=== PATIENT | female | born 2000 | race African-American/Black ===

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

== ENCOUNTER 2018-06-29 07:42 | Inpatient (IN) | payer OTHER ==
[2018-06-29] MEDS ORDERED: BUTORPHANOL 2 MG/ML INJ (J0595) As Ordered (08:22)
[2018-06-29 08:39] LABS: BASO % 0.3 % (0.0-1.0); EOS # 0.2 10^3/uL (0.0-0.50); EOS % 1.7 % (0.0-3.0); HEMATOCRIT 35.1 % (36.0-47.0); HEMOGLOBIN 11.4 g/dl (12.0-15.5); IMMATURE GRANULOCYTE % 0.5 % (0-3.0); LYMPH # 3.3 10^3/uL (1.5-6.5); MEAN CORPUSCULAR HEMOGLOBIN 29.2 pg (27.0-33.0); MEAN CORPUSCULAR HGB CONC 32.5 g/dl (32.0-36.5); MONO # 0.7 10^3/uL (0.0-0.8); MONO % 8.1 % (0.0-5.0); NEUTROPHILS # 4.6 10^3/uL (1.8-7.7); NEUTROPHILS % 52.4 % (36.0-66.0); PLATELET COUNT, AUTOMATED 147 10^3/uL (150-450); RED CELL DISTRIBUTION WIDTH 13.2 % (11.5-14.5); WHITE BLOOD COUNT 8.8 10^3/uL (4.0-10.0)
[2018-06-29] MEDS ORDERED: FENTANYL 2MCG/ML ROPIVACAINE 0.2% IN 0.9% NACL 200ML IVBAG As Ordered (08:47)
[2018-06-29] MEDS: BUTORPHANOL 2 MG/ML INJ (J0595) IV (09:00)
[2018-06-29] MEDS: LR 1,000 ML IV (09:36)
[2018-06-29] MEDS: LACTATED RINGER'S 1000 ML IV (09:36)
[2018-06-29] MEDS ORDERED: diphenhydrAMINE INJ 50MG/ML VIAL (J1200) IV (10:00)
[2018-06-29] MEDS ORDERED: ONDANSETRON 4MG/2ML VIAL (J2405) IV (10:00)
[2018-06-29] MEDS ORDERED: EPIDURAL COMMENT XX (10:00)
[2018-06-29] MEDS ORDERED: NALOXONE INJ 0.4 MG/1 ML VIAL (J2310) IV (10:00)
[2018-06-29] MEDS ORDERED: EPIDURAL/PCA KEYS XX (10:00)
[2018-06-29] MEDS ORDERED: REFRIGERATOR IV KEYS XX (10:00)
[2018-06-29] MEDS: FENTANYL/ROPIVACAINE/NACL BAG 200 ML EPIDURAL (10:31)
[2018-06-29] MEDS ORDERED: OXYTOCIN 30 UNITS IN 0.9% NaCl 500ML IV BAG (J2590) As Ordered (11:52)
[2018-06-29] MEDS: OXYTOCIN DRIP 30 UNITS in APPROPRIATE DILUENT 1 EA IV (13:28)
[2018-06-29] MEDS ORDERED: METOCLOPRAMIDE INJ 10MG/2ML VIAL (J2765) IV (13:30)
[2018-06-29] MEDS ORDERED: RHOGAM 300 MCG (1500 IU) INJ (J2790) IM (13:30)
[2018-06-29] MEDS ORDERED: MEASLES,MUMPS,RUBELLA VACCINE INJ (MMR-II) (90707) SC (13:30)
[2018-06-29] MEDS ORDERED: DIBUCAINE 1% OINTMENT 30GM TOP (13:30)
[2018-06-29] MEDS: IBUPROFEN 800 MG TAB PO (15:25)
[2018-06-29] MEDS: ACETAMINOPHEN TAB 650MG DOSE (2X325MG) PO ×2 (18:33→21:36)
[2018-06-29] MEDS: DOCUSATE SODIUM 100 MG CAP PO (20:21)
[2018-06-30] MEDS: PRENATAL VITAMINS CHEWABLE TABLET PO (07:15)
[2018-06-30] MEDS: DOCUSATE SODIUM 100 MG CAP PO ×2 (07:16→20:48)
[2018-06-30] MEDS: IBUPROFEN 800 MG TAB PO ×2 (07:16→18:51)
[2018-06-30] MEDS: ACETAMINOPHEN TAB 650MG DOSE (2X325MG) PO (20:48)
[2018-07-01] MEDS: IBUPROFEN 800 MG TAB PO (06:27)
[2018-07-01] MEDS: PRENATAL VITAMINS CHEWABLE TABLET PO (08:26)
[2018-07-01] MEDS: DOCUSATE SODIUM 100 MG CAP PO (08:26)
[2018-07-01] MEDS: INFLUENZA QUADRIVALENT PF VACCINE 0.5ML SYRINGE (90686) IM (12:19)
== END 2018-07-01 13:40 | disposition home or self-care (01) | DRG 775 ==
LOC: M LDO 07:42 → M LDI 07:55 → M OBS 14:04
PROVIDERS: Obstetrics & Gynecology
PROC: 10E0XZZ Delivery of Products of Conception, External Approach (ICD-10-PCS; principal; 2018-06-29)
PROC: 0HQ9XZZ Repair Perineum Skin, External Approach (ICD-10-PCS; 2018-06-29)
DX: O70.0 First degree perineal laceration during delivery (principal); Z37.0 Single live birth; Z3A.39 39 weeks gestation of pregnancy

== ENCOUNTER → 2019-01-13 | Outpatient (CLI) | payer OTHER ==
[~2019-01-13] MED LIST: COLA100C5 PO; IBUP-1114 PO; MAPA500T2 PO; PRENTAB56; REGL10TA6 PO; VITA100T14 PO; prenatal PO
--- NOTE | 2019-01-13 20:07 | REP ---
First trimester obstetric ultrasound for dating and viability: The studies performed with transabdominal, vaginal and Doppler ultrasound assessment. Gestational age by LMP is 7 weeks 1 day. There is an intrauterine gestational sac without a pole or yolk sac. The mean gestational sac diameter is 7.26 mm corresponding to 5 weeks 3 days gestational age. Right ovary: The right ovary is normal size measuring 3.4-0.1 x 2.5 cm. There is a complex hemorrhagic cyst measuring 2.5 x 1.8 x 2.2 cm. There is vascular flow with the Doppler resistive index of the parenchymal arteries measuring 0.37. Left ovary: Left ovary is normal size measuring 2.6 x 1.3 x 1.3 cm. There is no dominant mass or cyst. There is vascular flow with the Doppler resistive index of the parenchymal arteries measuring 0.62. There is a trace of free fluid in the cul-de-sac. Impression: There is an intrauterine gestational sac without pole or yolk sac. Mean gestational sac diameter corresponds to 5 weeks 3 days gestational age. Gestational age by LMP is 7 weeks 1 day. Electronically Signed by Joseph Brenner MD 01/13/2019 07:58 P
== END ==
LOC: M RAD 18:16
PROVIDERS: ATTEND Nurse Practitioner Family
DX: Z32.01 Encounter for pregnancy test, result positive (principal); Z3A.01 Less than 8 weeks gestation of pregnancy; Z01.83 Encounter for blood typing

== ENCOUNTER 2019-01-16 14:06 | Emergency (ER) | payer OTHER ==
[~2019-01-16] VITALS: Ht 172.7 cm; Wt 81.8 kg
[~2019-01-16 14:06] MED LIST changes: -PRENTAB56
[2019-01-16] MEDS ORDERED: PRENTAB56 (14:12)
[2019-01-16 15:01] LABS: BASO % 0.4 % (0.0-1.0); EOS # 0.2 10^3/uL (0.0-0.50); EOS % 2.1 % (0.0-3.0); LYMPH # 2.8 10^3/uL (1.5-6.5); LYMPH % 36.2 % (24.0-44.0); MEAN CORPUSCULAR HEMOGLOBIN 28.5 pg (27.0-33.0); MEAN CORPUSCULAR HGB CONC 31.7 g/dl (32.0-36.5); MEAN CORPUSCULAR VOLUME 89.9 fl (80.0-96.0); MONO # 0.5 10^3/uL (0.0-0.8); MONO % 6.8 % (0.0-5.0); NEUTROPHILS # 4.2 10^3/uL (1.8-7.7); NEUTROPHILS % 54.2 % (36.0-66.0); PLATELET COUNT, AUTOMATED 185 10^3/uL (150-450); RED BLOOD COUNT 4.56 10^6/uL (4.00-5.40); WHITE BLOOD COUNT 7.7 10^3/uL (4.0-10.0)
[2019-01-16 15:41] LABS: BLOOD UREA NITROGEN 10 MG/DL (7-18); CALCIUM LEVEL 8.8 MG/DL (8.5-10.1); CARBON DIOXIDE LEVEL 27 MEQ/L (21-32); CHLORIDE LEVEL 106 MEQ/L (98-107); CREATININE FOR GFR 0.79 MG/DL (0.55-1.30); GLUCOSE, FASTING 83 MG/DL (70-100); HCG, SERUM QUANTITATIVE 3288 MIU/ML; SODIUM LEVEL 138 MEQ/L (136-145)
[2019-01-16 15:59] VITALS: BP 111/57
--- NOTE | 2019-01-16 16:57 | REP ---
FIRST TRIMESTER ULTRASOUND: Real-time sonographic evaluation of the pelvis was performed utilizing transabdominal and endovaginal technique. The uterus 8.9 x 5.1 x 6.0 cm. When comparing to the prior study of 01/13/2019, the previously noted sac like structure which was seen in the region of the fundus, within the endometrium is now located in the cervix. The average diameter is 6 mm corresponding to an estimated gestational age of 5 weeks 2 days. I suspect this represents an in progress. Ectopic can not be completely excluded and suggest correlation with serial quantitaive beta HCG values. Right ovary measures 3.9 x 2.5 x 2.7 cm and contains a complex corpus luteum 2.7 x 1.7 x 1.8 cm. Left ovary measures 3.4 x 1.2 x 2.2 cm. There is no ovarian torsion bilaterally. Resistive index right ovary 0.44 and left ovary 0.45. Mild free fluid is seen. Electronically Signed by Joseph Ochoa MD 01/16/2019 06:33 P
== END 2019-01-16 16:03 | disposition home or self-care (01) ==
LOC: M ED 14:06
DX: O20.0 Threatened abortion (principal); Z3A.01 Less than 8 weeks gestation of pregnancy

== ENCOUNTER → 2019-06-27 | Outpatient (CLI) | payer OTHER ==
[~2019-06-27] MED LIST changes: +PRENTAB56
--- NOTE | 2019-06-27 16:32 | REP ---
First trimester obstetric ultrasound for gestational bleeding: There is a single intrauterine gestation. The heart rate is 160 beats per minute. The crown-rump length is 5.2 cm. This corresponds to a gestational age of 11 weeks 6 days. The MARCIN is 01/10/2020. Gestational age by LMP is 10 weeks 6 days/MARCIN 01/17/2020. There is no subchorionic hematoma. Electronically Signed by Joseph Brenner MD 06/27/2019 04:24 P
== END ==
LOC: M RAD 14:55
PROVIDERS: ATTEND Nurse Practitioner Family
DX: Z32.01 Encounter for pregnancy test, result positive (principal)

== ENCOUNTER 2019-08-01 18:08 | Emergency (ER) | payer OTHER ==
[~2019-08-01] VITALS: Ht 170.2 cm; Wt 78.7 kg
[2019-08-01 18:09] VITALS: BP 125/72
[2019-08-01] MEDS ORDERED: lidocaine patch (18:15)
[2019-08-01] MEDS ORDERED: muscle relaxer (18:15)
[2019-08-01] MEDS ORDERED: IBUP-1022 (18:15)
[2019-08-01] MEDS ORDERED: diphenhydrAMINE INJ 50MG/ML VIAL (J1200) IV STA (19:37)
[2019-08-01] MEDS ORDERED: METOCLOPRAMIDE INJ 10MG/2ML VIAL (J2765) IV ONE (19:45)
[2019-08-01] MEDS ORDERED: NS 1,000 ML IV ONE (19:45)
[2019-08-01] MEDS ORDERED: KETOROLAC 30 MG/ML VIAL (J1885) IV ONE (19:45)
[2019-08-01 20:52] LABS: BASO % 0.2 % (0.0-1.0); EOS # 0.1 10^3/uL (0.0-0.5); EOS % 1.7 % (0.0-3.0); HEMATOCRIT 38.8 % (36.0-47.0); HEMOGLOBIN 12.2 g/dl (12.0-15.5); LYMPH # 1.8 10^3/uL (1.5-5.0); LYMPH % 22.2 % (24.0-44.0); MEAN CORPUSCULAR HGB CONC 31.4 g/dl (32.0-36.5); MEAN CORPUSCULAR VOLUME 92.4 fl (80.0-96.0); MONO # 0.6 10^3/uL (0.0-0.8); MONO % 7.6 % (0.0-5.0); NEUTROPHILS # 5.6 10^3/uL (1.5-8.5); NEUTROPHILS % 68.1 % (36.0-66.0); PLATELET COUNT, AUTOMATED 147 10^3/uL (150-450); WHITE BLOOD COUNT 8.2 10^3/uL (4.0-10.0)
[2019-08-01 21:18] LABS: BLOOD UREA NITROGEN 11 MG/DL (7-18); CALCIUM LEVEL 8.9 MG/DL (8.5-10.1); CARBON DIOXIDE LEVEL 28 MEQ/L (21-32); CHLORIDE LEVEL 109 MEQ/L (98-107); CREATININE FOR GFR 0.86 MG/DL (0.55-1.30); GLUCOSE, FASTING 93 MG/DL (70-100); HCG, SERUM QUANTITATIVE 20 MIU/ML; POTASSIUM SERUM 3.8 MEQ/L (3.5-5.1); SODIUM LEVEL 142 MEQ/L (136-145)
[2019-08-01] MEDS ORDERED: ONDANSETRON 4MG/2ML VIAL (J2405) IV ONE (22:30)
[2019-08-01] MEDS ORDERED: MORPHINE 2 MG/ML 1ML VIAL (J2270) IV ONE (22:30)
== END 2019-08-01 23:13 | disposition home or self-care (01) ==
LOC: M ED 18:08
DX: G43.909 Migraine, unspecified, not intractable, without status migrainosus (principal); Z87.59 Personal history of other complications of pregnancy, childbirth and the puerperium
CPT/HCPCS: 80048; 84702; 85025; 96361; 96374; 96375; 99284; J1200; J1885; J2270; J2405; J2765

== ENCOUNTER 2019-12-12 20:48 | Emergency (ER) | payer OTHER ==
[~2019-12-12] VITALS: Ht 170.2 cm; Wt 75.4 kg
[~2019-12-12 20:48] MED LIST changes: +IBUP-1022; +lidocaine patch; +muscle relaxer
[2019-12-12] MEDS ORDERED: DESO1TAB26 (21:02)
[2019-12-12] MEDS ORDERED: METOCLOPRAMIDE INJ 10MG/2ML VIAL (J2765) IV ONE (22:45)
[2019-12-12] MEDS ORDERED: NS 1,000 ML IV ONE (22:45)
[2019-12-12 23:28] LABS: BASO % 0.4 % (0.0-1.0); EOS # 0.3 10^3/uL (0.0-0.5); EOS % 4.5 % (0.0-3.0); HEMOGLOBIN 12.1 g/dl (12.0-15.5); LYMPH # 3.5 10^3/uL (1.5-5.0); LYMPH % 47.1 % (24.0-44.0); MEAN CORPUSCULAR HEMOGLOBIN 28.7 pg (27.0-33.0); MEAN CORPUSCULAR HGB CONC 31.8 g/dl (32.0-36.5); MEAN CORPUSCULAR VOLUME 90.3 fl (80.0-96.0); MONO # 0.5 10^3/uL (0.0-0.8); MONO % 6.8 % (0.0-5.0); NEUTROPHILS # 3.1 10^3/uL (1.5-8.5); NEUTROPHILS % 41.1 % (36.0-66.0); PLATELET COUNT, AUTOMATED 197 10^3/uL (150-450); RED BLOOD COUNT 4.21 10^6/uL (4.00-5.40); WHITE BLOOD COUNT 7.5 10^3/uL (4.0-10.0)
--- NOTE | 2019-12-12 23:44 | REPVR ---
PROCEDURE INFORMATION: Exam: CT Head Without Contrast Exam date and time: 12/12/2019 10:44 PM Age: 19 years old Clinical indication: Pain; Headache not specified; Additional info: Altered mental status TECHNIQUE: Imaging protocol: Computed tomography of the head without contrast. Radiation optimization: All CT scans at this facility use at least one of these dose optimization techniques: automated exposure control; mA and/or kV adjustment per patient size (includes targeted exams where dose is matched to clinical indication); or iterative reconstruction. COMPARISON: No relevant prior studies available. FINDINGS: Brain: No intracranial hemorrhage or extra-axial fluid collection. No evidence of mass effect or midline shift. Ochoa-white matter differentiation is intact. Ventricles: No ventriculomegaly. Bones/joints: No acute osseus lesion or fracture. Sinuses: Unremarkable as visualized. Mastoid air cells: Unremarkable. Soft tissues: Unremarkable. IMPRESSION: No acute intracranial pathology. Electronically signed by: Rigo Mcleod On 12/12/2019 23:44:13 PM
[2019-12-13] MEDS ORDERED: KETOROLAC 30 MG/ML VIAL (J1885) IV ONE
[2019-12-13 00:05] LABS: ACETAMINOPHEN LEVEL < 2.0 UG/ML (10.0-30.0); ALBUMIN 3.7 GM/DL (3.2-5.2); ALT/SGPT 30 U/L (12-78); BILIRUBIN,DIRECT < 0.1 MG/DL (0.0-0.2); BILIRUBIN,TOTAL 0.2 MG/DL (0.2-1.0); BLOOD UREA NITROGEN 12 MG/DL (7-18); CALCIUM LEVEL 9.2 MG/DL (8.5-10.1); CARBON DIOXIDE LEVEL 28 MEQ/L (21-32); CHLORIDE LEVEL 109 MEQ/L (98-107); CK-MB VALUE MASS 1.1 NG/ML (<3.6); CPK CREATINE PHOSPHOKINASE 229 U/L (26-192); CREATININE FOR GFR 0.83 MG/DL (0.55-1.30); ETHYL ALCOHOL (ETHANOL) < 0.003 % (0.000-0.010); GLOMERULAR FILTRATION RATE > 60.0 (>60); GLUCOSE, FASTING 103 MG/DL (70-100); MB/CK RELATIVE INDEX 0.48 (< OR =4); POTASSIUM SERUM 3.9 MEQ/L (3.5-5.1); SALICYLATE LEVEL < 1.7 MG/DL (5.0-30.0); SODIUM LEVEL 141 MEQ/L (136-145); TOTAL PROTEIN 7.4 GM/DL (6.4-8.2); TROPONIN I < 0.02 NG/ML (< 0.10)
[2019-12-13 00:10] LABS: AMPHETAMINES LEVEL URINE NEGATIVE (NEGATIVE); BARBITURATES URINE NEGATIVE (NEGATIVE); BENZODIAZEPINES URINE NEGATIVE (NEGATIVE); CANNABINOIDS URINE NEGATIVE (NEGATIVE); COCAINE METABOLITE URINE NEGATIVE (NEGATIVE); METHADONE URINE NEGATIVE (NEGATIVE); OPIATES URINE NEGATIVE (NEGATIVE); PHENCYCLIDINE URINE NEGATIVE (NEGATIVE)
[2019-12-13] MEDS ORDERED: TETRACAINE 0.5% OPHTH SOLN 4ML OD ONE (01:45)
[2019-12-13] MEDS ORDERED: FLUORESCEIN OPHTH 1 MG STRIP OD ONE (01:45)
[2019-12-13 02:31] VITALS: BP 133/78
--- NOTE | 2019-12-13 12:18 | ECGEPIP ---
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
== END 2019-12-13 02:55 | disposition home or self-care (01) ==
LOC: M ED 20:48
DX: R51 Headache (principal); H53.10 Unspecified subjective visual disturbances; Z79.3 Long term (current) use of hormonal contraceptives
CPT/HCPCS: 70450; 80048; 80076; 80307; 82550; 82553; 84443; 84484; 84702; 85025; 93005; 94760; 96361; 96374; 96375; 99284; G0480; J1885; J2765

== ENCOUNTER 2020-01-25 07:05 | Emergency (ER) | payer OTHER ==
[~2020-01-25] VITALS: Ht 170.2 cm; Wt 78.6 kg
[~2020-01-25 07:05] MED LIST changes: +DESO1TAB26
[2020-01-25] MEDS ORDERED: RIZA5TAB52 (07:12)
[2020-01-25 08:15] LABS: BASO % 0.5 % (0.0-1.0); EOS # 0.2 10^3/uL (0.0-0.5); EOS % 3.2 % (0.0-3.0); HEMATOCRIT 40.8 % (36.0-47.0); HEMOGLOBIN 12.8 g/dl (12.0-15.5); LYMPH # 2.7 10^3/uL (1.5-5.0); LYMPH % 45.9 % (24.0-44.0); MEAN CORPUSCULAR HEMOGLOBIN 28.4 pg (27.0-33.0); MEAN CORPUSCULAR HGB CONC 31.4 g/dl (32.0-36.5); MEAN CORPUSCULAR VOLUME 90.7 fl (80.0-96.0); MONO # 0.3 10^3/uL (0.0-0.8); MONO % 5.7 % (0.0-5.0); NEUTROPHILS # 2.6 10^3/uL (1.5-8.5); NEUTROPHILS % 44.5 % (36.0-66.0); PLATELET COUNT, AUTOMATED 171 10^3/uL (150-450); WHITE BLOOD COUNT 5.9 10^3/uL (4.0-10.0)
[2020-01-25 08:35] LABS: ERYTHROCYTE SEDIMENTATION RATE 17 mm/hr (0-20)
[2020-01-25 08:39] LABS: C REACTIVE PROTEIN QUANTITATIV < 0.30 MG/DL (0.00-0.30)
[2020-01-25 08:50] LABS: BLOOD UREA NITROGEN 13 MG/DL (7-18); CARBON DIOXIDE LEVEL 24 MEQ/L (21-32); CHLORIDE LEVEL 109 MEQ/L (98-107); CREATININE FOR GFR 0.89 MG/DL (0.55-1.30); GLOMERULAR FILTRATION RATE > 60.0 (>60); GLUCOSE, FASTING 90 MG/DL (70-100); HCG, SERUM QUALITATIVE NEGATIVE (NEGATIVE); POTASSIUM SERUM 4.2 MEQ/L (3.5-5.1); SODIUM LEVEL 139 MEQ/L (136-145)
[2020-01-25 08:56] VITALS: BP 116/77
== END 2020-01-25 09:07 | disposition home or self-care (01) ==
LOC: M ED 07:05
DX: M70.21 Olecranon bursitis, right elbow (principal); G43.909 Migraine, unspecified, not intractable, without status migrainosus

== ENCOUNTER 2020-03-04 09:16 | Emergency (ER) | payer OTHER ==
[~2020-03-04] VITALS: Ht 170.2 cm; Wt 81.0 kg
[~2020-03-04 09:16] MED LIST changes: +RIZA5TAB52
[2020-03-04] MEDS ORDERED: NEXP1IMP (09:23)
[2020-03-04] MEDS ORDERED: IBUP80TA (09:23)
[2020-03-04] MEDS ORDERED: ZONI25CA13 (09:23)
[2020-03-04] MEDS ORDERED: CETI-24 (09:23)
[2020-03-04] MEDS ORDERED: CYCL-707 (09:23)
[2020-03-04] MEDS ORDERED: RIZA10TA58 (09:23)
[2020-03-04 10:25] VITALS: BP 119/77
--- NOTE | 2020-03-04 13:30 | REP ---
LEFT RIB SERIES: Four views of left ribs performed. There is no evidence of fracture or bone lesion. An accompanying PA view of the chest demonstrates no acute infiltrate or pneumothorax. No pleural effusion is seen. Heart is normal in size. IMPRESSION: Negative left rib series. Electronically Signed by Joseph Ochoa MD 03/04/2020 10:44 P
== END 2020-03-04 10:24 | disposition home or self-care (01) ==
LOC: M ED 09:16
DX: S20.212A Contusion of left front wall of thorax, initial encounter (principal); Z79.899 Other long term (current) drug therapy; W19.XXXA Unspecified fall, initial encounter; Y92.9 Unspecified place or not applicable; Y99.8 Other external cause status

== ENCOUNTER 2020-11-10 12:06 | Emergency (ER) | payer OTHER ==
[~2020-11-10] VITALS: Ht 167.6 cm; Wt 78.5 kg
[~2020-11-10 12:06] MED LIST changes: +CETI-24; +CYCL-707; +IBUP80TA; +NEXP1IMP; +RIZA10TA58; +ZONI25CA13
--- OUTSIDE RECORDS SUMMARY | 2020-11-10 12:13 | CCD ---
Author Author [facility] Organization [facility] Address Unknown Phone Unavailable Care Team Providers Care Weft Straightener Name Role Phone Trickey, J Vivienne PA Unavailable Unavailable Trickey, J Vivienne PA Unavailable Unavailable Trickey, J Vivienne PA Unavailable Unavailable Trickey, J Vivienne PA Unavailable Unavailable Trickey, J Vivienne PA Unavailable Unavailable Trickey, J Vivienne PA Unavailable Unavailable Trickey, J Vivienne PA Unavailable Unavailable Trickey, J Vivienne PA Unavailable Unavailable Trickey, J Vivienne PA Unavailable Unavailable Trickey, J Vivienne PA Unavailable Unavailable Trickey, J Vivienne PA Unavailable Unavailable Trickey, J Vivienne PA Unavailable Unavailable Trickey, J Vivienne PA Unavailable Unavailable Trickey, J Vivienne PA Unavailable Unavailable Trickey, J Vivienne PA Unavailable Unavailable Trickey, J Vivienne PA Unavailable Unavailable Trickey, J Vivienne PA Unavailable Unavailable Trickey, J Vivienne PA Unavailable Unavailable Trickey, J Vivienne PA Unavailable Unavailable Trickey, J Vivienne PA Unavailable Unavailable Trickey, J Vivienne PA Unavailable Unavailable Trickey, J Vivienne PA Unavailable Unavailable Trickey, J Vivienne PA Unavailable Unavailable Trickey, J Vivienne PA Unavailable Unavailable Trickey, J Vivienne PA Unavailable Unavailable Trickey, J Vivienne PA Unavailable Unavailable Trickey, J Vivienne PA Unavailable Unavailable Trickey, J Vivienne PA Unavailable Unavailable Trickey, J Vivienne PA Unavailable Unavailable Trickey, J Vivienne PA Unavailable Unavailable Trickey, J Vivienne PA Unavailable Unavailable Trickey, J Vivienne PA Unavailable Unavailable Trickey, J Vivienne PA Unavailable Unavailable Trickey, J Vivienne PA Unavailable Unavailable Trickey, J Vivienne PA Unavailable Unavailable Trickey, J Vivienne PA Unavailable Unavailable Trickey, J Vivienne PA Unavailable Unavailable Trickey, J Vivienne PA Unavailable Unavailable Trickey, J Vivienne PA Unavailable Unavailable Trickey, J Vivienne PA Unavailable Unavailable Trickey, J Vivienne PA Unavailable Unavailable Trickey, J Vivienne PA Unavailable Unavailable Trickey, J Vivienne PA Unavailable Unavailable Trickey, J Vivienne PA Unavailable Unavailable Trickey, J Vivienne PA Unavailable Unavailable Trickey, J Vivienne PA Unavailable Unavailable Trickey, J Vivienne PA Unavailable Unavailable Trickey, J Vivienne PA Unavailable Unavailable Trickey, J Vivienne PA Unavailable Unavailable Trickey, J Vivienne PA Unavailable Unavailable Trickey, J Vivienne PA Unavailable Unavailable Trickey, J Vivienne PA Unavailable Unavailable SantoyoJuniee Karlee SCIENTIST IMMUNOLOGY Unavailable Unavailable SantoyoBeena Karlee SCIENTIST IMMUNOLOGY Unavailable Unavailable SantoyoBeena Karlee SCIENTIST IMMUNOLOGY Unavailable Unavailable SantoyoJuniee Karlee SCIENTIST IMMUNOLOGY Unavailable Unavailable SantoyoJuniee Karlee SCIENTIST IMMUNOLOGY Unavailable Unavailable SantoyoJuniee Karlee SCIENTIST IMMUNOLOGY Unavailable Unavailable Robert Petersey PA Unavailable Unavailable Theresa, Robert Roqueey PA Unavailable Unavailable Theresa, Robert Roqueey PA Unavailable Unavailable Theresa, Robert Suze PA Unavailable Unavailable Theresa, Robert Suze PA Unavailable Unavailable Theresa, Robert Roqueey PA Unavailable Unavailable Theresa, Robert Roqueey PA Unavailable Unavailable Theresa, Robert Roqueey PA Unavailable Unavailable Theresa, Robert Suze PA Unavailable Unavailable Theresa, Robert Suze PA Unavailable Unavailable Theresa, Robert Suze PA Unavailable Unavailable Theresa, Robert Suze PA Unavailable Unavailable Theresa, Robert Roqueey PA Unavailable Unavailable Theresa, Robert Roqueey PA Unavailable Unavailable Theresa, Robert Roqueey PA Unavailable Unavailable Theresa, J Suze PA Unavailable Unavailable Theresa, Robert Suze PA Unavailable Unavailable Theresa, Robert Suze PA Unavailable Unavailable Theresa, J Suze PA Unavailable Unavailable Theresa, Robert Suze PA Unavailable Unavailable Theresa, Robert Roqueey PA Unavailable Unavailable Lorraine, Robert Arciniega PA Unavailable Unavailable Re-disclosure Warning The records that you are about to access may contain information from federally-assisted alcohol or drug abuse programs. If such information is present, then the following federally mandated warning applies: This information has been disclosed to you from records protected by federal confidentiality rules (42 CFR part 2). The federal rules prohibit you from making any further disclosure of this information unless further disclosure is expressly permitted by the written consent of the person to whom it pertains or as otherwise permitted by 42 CFR part 2. A general authorization for the release of medical or other information is NOT sufficient for this purpose. The Federal rules restrict any use of the information to criminally investigate or prosecute any alcohol or drug abuse patient.The records that you are about to access may contain highly sensitive health information, the redisclosure of which is protected by Article 27-F of the [facility] Public Health law. If you continue you may have access to information: Regarding HIV / AIDS; Provided by facilities licensed or operated by the [facility] Office of Mental Health; or Provided by the [facility] Office for People With Developmental Disabilities. If such information is present, then the following [facility] mandated warning applies: This information has been disclosed to you from confidential records which are protected by state law. State law prohibits you from making any further disclosure of this information without the specific written consent of the person to whom it pertains, or as otherwise permitted by law. Any unauthorized further disclosure in violation of state law may result in a fine or half-way sentence or both. A general authorization for the release of medical or other information is NOT sufficient authorization for further disc losure. Allergies and Adverse Reactions Type Description Substance Reaction Status Data Source(s ) Drug allergy Drug allergy NKDA [facility] ([facility]) Encounters Encounter Providers Location Date Indications Data Source(s ) Outpatient Attender: Vivienne VO [facility] 05/16/2020 01:00:00 PM EDT [facility] ([facility]) Outpatient 03/21/2020 06:13:00 AM EDT [facility] Outpatient Attender: Vivienne VO [facility] 02/27/2020 01:00:00 PM EDT [facility] ([facility]) Attender: Karlee PADRON [facility] 02/13/2020 09:27:00 AM EDT - 02/13/2020 09:27:00 AM EDT [facility] ([facility]) OutpatientOFFICE VISIT, EST Attender: Karlee CORRIGAN Y [facility] 02/09/2020 07:45:00 AM EDT - 02/09/2020 07:45:00 AM EDT Acute vaginitisHuman immunodeficiency virus [HIV] counselingHigh risk heterosexual behaviorEncntr screen for infections w sexl mode of transmissEncounter for oth general cnsl and advice on contraceptionOther sex counseling [facility] ([facility]) Acute vaginitis Human immunodeficiency virus [HIV] couns eling High risk heterosexual behavior Encntr screen for infections w sexl mode of transmiss Encounter for oth general cnsl and advic e on contraception Other sex counseling Attender: Suze PADRON [place] 10/2019 11:57:00 AM EST - 11/27/2019 11:57:00 AM EST [facility] ([facility]) Attender: Karlee PADRON [place] 11/07/2019 09:30:00 AM EST - 11/07/2019 09:30:00 AM EST Encntr for f/u exam aft trtmt for cond o th than malig neoplmEncounter for surveillance of contraceptive pillsEncounter for oth general cnsl and advice on contraceptionOther sex counseling [facility] ([facility]) Encntr for f/u exam aft trtmt for cond o th than malig neoplm Encounter for surveillance of contracept kishor pills Encounter for oth general cnsl and advic e on contraception Other sex counseling Attender: Kralee BRIAN PPMO [facility] 10/27/2019 12:30:00 PM EST - 10/27/2019 12:30:00 PM EST Encounter for elective termination of [facility] ([facility]) Encounter for elective termination of pr egnancy Attender: Karlee BRIAN PPNCRICKY [place] 10/19/2019 11:00:00 AM EST - 10/19/2019 11:00:00 AM EST Encounter for initial prescription of co ntraceptive pillsEncounter for preprocedural laboratory examinationEncounter for other preprocedural examinationHigh risk heterosexual behaviorEncntr screen for infections w sexl mode of transmissOther sex counselingEncounter for oth general cnsl and advice on contraceptionUnspecified blood type, Rh positiveEncounter for test, result positiveProblems related to unwanted pregnancyPreg nant state, incidental [facility] ([facility]) Encounter for initial prescription of co ntraceptive pills Encounter for preprocedural laboratory e xamination Encounter for other preprocedural examin ation High risk heterosexual behavior Encntr screen for infections w sexl mode of transmiss Other sex counseling Encounter for oth general cnsl and advic e on contraception Unspecified blood type, Rh positive Encounter for test, result pos itive Problems related to unwanted state, incidental Medications Medication Brand Name Start Date Product Form Dose Route Admi nistrative Instructions Pharmacy Instructions Status Indications Reaction Description Data Source(s) naratriptan 2.5 MG Oral Tablet Naratriptan HCL 05/16/2020 12:00:00 AM EDT active [facility] ([facility] ) rizatriptan 10 MG Disintegrating Oral Tablet [Maxalt] Maxalt -PROFESSOR OF MUSICOLOGY 02/27/2020 12:00:00 AM EDT ORAL completed [facility] ([facility] ) zonisamide 25 MG Oral Capsule Zonisamide 02/27/2020 12:00:00 AM EDT ORAL active [facility] ([facility] ) Metronidazole 500 MG Oral Tablet metronidazole 500 mg tablet metronidazole 500 mg tablet 02/09/2020 12:00:00 AM EDT active 1 tab po bid x 7d (#14) [facility] ([facility]) rizatriptan 5 MG Disintegrating Oral Tablet Rizatriptan Isauro oate 12/29/2019 12:00:00 AM EDT ORAL completed [facility] ([facility] ) Ibuprofen 800 MG Oral Tablet Ibuprofen 12/19/2019 12:00:00 AM EDT ORAL active [facility] ([facility] ) Sumatriptan 100 MG Oral Tablet Sumatriptan Succinate 12/19/2019 12:00:00 AM EDT ORAL completed [facility] ([facility] ) Apri 0.15 mg-0.03 mg tablet {21 (Desogestrel 0.15 MG / Ethinyl Estradiol 0.03 MG Oral Tablet) / 7 (Inert Ingredients 1 MG Oral Tablet) } Pack 10/19/2019 12:00:00 AM EST active Apri 28 Day Pack [facility] ([facility]) Insurance Providers Payer name Policy type / Coverage type Policy ID Covered alliance party ID Covered alliance party's relationship to king Policy King Plan Information [facility] ACTIVE DUTY [id number] SP [id number] / [id number] Self [id number] HUMANA [facility] O [id number] S [id number] [facility] ACTIVE DUTY [id number] SP [id number] SELF PAY O UNAVAILABLE S UNAVAILA BLE [facility] HUMANA - O/P [id number] 18 [id number] [facility] ACTIVE DUTY [id number] SP [id number] Problems, Conditions, and Diagnoses Code Display Name Description Problem Type Effective Dates Data Source(s) 096854796 Chronic tension-type headache Chronic tension-type hea dache Problem 12/19/2019 12:00:00 AM EDT [facility] ([facility] ) [id number] Migraine without aura, not refractory Mi graine without aura, not refractory Problem 12/19/2019 12:00:00 AM EDT [facility] ([facility] ) Surgeries/Procedures Procedure Description Date Indications Data Source(s) CVR Consulting Services Manager.Svc. Other 02/09/2020 12:00:00 AM EDT - 2019 12:00:00 AM EDT [facility] ([facility]) CVR Med.Svc. Vaginitis Rx 02/09/2020 12: 00:00 AM EDT - 02/09/2020 12:00:00 AM EDT [facility] ([facility]) CVR Med.Svc. Other 02/09/2020 12:00:00 AM EDT - 2019 12:00:00 AM EDT [facility] ([facility]) OFFICE VISIT, EST 02/09/2020 12:00:00 AM EDT - 020 12:00:00 AM EDT [facility] ([facility]) SMEAR, WET [place], SALINE/INK 02/09/2020 12:00:00 AM EDT - 02/09/2020 12:00:00 AM EDT [facility] ([facility]) ASSAY OF BODY FLUID ACIDITY 02/09/2020 1 2:00:00 AM EDT - 02/09/2020 12:00:00 AM EDT [facility] ([facility]) TRICHOMONAS VAGIN, DIR PROBE 02/09/2020 12:00:00 AM EDT - 02/09/2020 12:00:00 AM EDT [facility] ([facility]) CABRERA VAG, DNA, DIR PROBE 02/09/2020 1 2:00:00 AM EDT - 02/09/2020 12:00:00 AM EDT [facility] ([facility]) NANCY, DNA, DIR PROBE 02/09/2020 12:00 :00 AM EDT - 02/09/2020 12:00:00 AM EDT [facility] ([facility]) Male Condom Latex 02/09/2020 12:00:00 AM EDT - 020 12:00:00 AM EDT [facility] ([facility]) N.GONORRHOEAE, Pharyngeal 02/09/2020 12: 00:00 AM EDT - 02/09/2020 12:00:00 AM EDT [facility] ([facility]) CHYLMD TRACH, Pharyngeal 02/09/2020 12:0 0:00 AM EDT - 02/09/2020 12:00:00 AM EDT [facility] ([facility]) SYPHILLIS BLOOD SEROLOGY, QUALITATIVE 12:00:00 AM EDT - 02/09/2020 12:00:00 AM EDT [facility] ([facility]) HEPATITIS C AB TEST 02/09/2020 12:00:00 AM EDT - 02/08 12:00:00 AM EDT [facility] ([facility]) N.GONORRHOEAE, URINE 02/09/2020 12:00:00 AM EDT - 02/09/2020 12:00:00 AM EDT [facility] ([facility]) CHYLMD TRACH, URINE 02/09/2020 12:00:00 AM EDT - 02/08 12:00:00 AM EDT [facility] ([facility]) Results ID Date Data Source [id number] 09/11/2020 10:50:00 AM EST [facility] Name Value Range Interpretation Code Description Data Tg rce(s) Supporting Document(s) SARS coronavirus 2 RNA [facility] This lab was ordered by [facility] and reported by [facility]. ID Date Data Source [id number] 02/09/2020 09:31:21 AM EDT [facility] ([facility]) Name Value Range Interpretation Code Description Data Tg rce(s) Supporting Document(s) Hyphae/Nancy: noBudding y east: noTrich: noClue cells: yes (>=20%)WBCs: noAmine/Whiff test: positivepH: 5.0 Wet [place] [facility] ([facility]) ID Date Data Source [id number] 02/09/2020 09:30:57 AM EDT [facility] ([facility]) Name Value Range Interpretation Code Description Data Tg rce(s) Supporting Document(s) pH: 5.0. Vaginal pH [facility] ([facility]) Procedure Social History Code Duration Value Status Description Data Source(s ) Smoking 02/13/2020 12:00:00 AM EDT Never smoker completed Never s moker [facility] ([facility]) Vital Signs ID Date Data Source UNK Name Value Range Interpretation Code Description Data Source(s) Respiratory rate 16 /min 16 /min [facility] ( [facility]) Heart [facility] 76 /min 76 /min [facility] Diastolic blood pressure 80 mm[Hg] 80 mm[Hg] [facility] ([facility]) Systolic blood pressure 110 mm[Hg] 110 mm[Hg] M [facility] ([facility]) Body mass index (BMI) [Ratio] 27.33 kg/m2 Overweight 27.33 kg/m2 [facility] ([facility]) Diastolic blood pressure 78 mm[Hg] 78 mm[Hg] [facility] ([facility]) Systolic blood pressure 120 mm[Hg] 120 mm[Hg] N [facility] ([facility]) Body weight 79.152 kg 79.152 kg [facility]) Body height 170.18 cm 170.18 cm [facility] ([facility]) Body mass index (BMI) [Ratio] 25.5 kg/m2 25.5 k g/m2 [facility] ([facility], ) Body weight 163.00 [lb_av] 163.00 [lb_av] [facility] T ([facility], ) Body height 67 [in_i] 67 [in_i] [facility] ([facility], ) 5'7" Respiratory rate 14 /min 14 /min [facility] Heart rate 80 /min 80 /min [facility] Diastolic blood pressure 80 mm[Hg] 80 mm[Hg] [facility] ([facility], ) Systolic blood pressure 110 mm[Hg] 110 mm[Hg] [facility] Patient Treatment Plan of Care Planned Activity Planned Date Details Description Data Source (s) Metronidazole 500 MG Oral Tablet 02/09/2020 12:00:00 [facility] Apri 0.15 mg-0.03 mg tablet 10/19/2019 12:00:00 AM EST [facility] ([facility])
[2020-11-10] MEDS ORDERED: ZONI25CA13 PO (12:15)
[2020-11-10] MEDS ORDERED: ONDANSETRON 4MG/2ML VIAL IV ONE (12:45)
[2020-11-10] MEDS ORDERED: NS 1,000 ML IV ONE (12:45)
[2020-11-10 12:47] LABS: BASO % 0.6 % (0.0-1.0); EOS # 0.1 10^3/uL (0.0-0.5); EOS % 1.7 % (0.0-3.0); HEMATOCRIT 37.8 % (36.0-47.0); LYMPH # 2.1 10^3/uL (1.5-5.0); LYMPH % 43.6 % (24.0-44.0); MEAN CORPUSCULAR HGB CONC 31.7 g/dl (32.0-36.5); MEAN CORPUSCULAR VOLUME 88.3 fl (80.0-96.0); MONO # 0.3 10^3/uL (0.0-0.8); MONO % 6.3 % (2.0-8.0); NEUTROPHILS # 2.3 10^3/uL (1.5-8.5); NEUTROPHILS % 47.6 % (36.0-66.0); PLATELET COUNT, AUTOMATED 172 10^3/uL (150-450); RED BLOOD COUNT 4.28 10^6/uL (4.00-5.40); WHITE BLOOD COUNT 4.7 10^3/uL (4.0-10.0)
--- OUTSIDE RECORDS SUMMARY | 2020-11-10 12:57 | CCD ---
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 Yard Worker Name Role Phone Trickey, J Vivienne PA [...] J Vivienne PA Unavailable Unavailable Trickey, J Ivvienne PA Unavailable Unavailable Trickey, J Vivienne PA [...] J Vivienne PA Unavailable Unavailable SantoyoJuniee Karlee CREDIT COLLECTION SPECIALIST Unavailable Unavailable SantoyoBeena Karlee CREDIT COLLECTION SPECIALIST Unavailable Unavailable SantoyoBeena Karlee CREDIT COLLECTION SPECIALIST Unavailable Unavailable SantoyoJuniee Karlee CREDIT COLLECTION SPECIALIST Unavailable Unavailable SantoyoJuniee Karlee CREDIT COLLECTION SPECIALIST Unavailable Unavailable SantoyoJuniee Karlee CREDIT COLLECTION SPECIALIST Unavailable Unavailable Robert Petersey PA Unavailable Unavailable Milton Freewater, Robert Roqueey PA Unavailable Unavailable Milton Freewater, Robert Roqueey PA Unavailable Unavailable Milton Freewater, Robert Suze PA Unavailable Unavailable Milton Freewater, Robert Suze PA Unavailable Unavailable Milton Freewater, Robert Roqueey PA Unavailable Unavailable Milton Freewater, Robert Roqueey PA Unavailable Unavailable Milton Freewater, Robert Roqueey PA Unavailable Unavailable Milton Freewater, Robert Suze PA Unavailable Unavailable Milton Freewater, Robert Suze PA Unavailable Unavailable Milton Freewater, Robert Suze PA Unavailable Unavailable Milton Freewater, Robert Suze PA Unavailable Unavailable Milton Freewater, Robert Roqueey PA Unavailable Unavailable Milton Freewater, Robert Roqueey PA Unavailable Unavailable Milton Freewater, Robert Roqueey PA Unavailable Unavailable Milton Freewater, J Suze PA Unavailable Unavailable Milton Freewater, Robert Suze PA Unavailable Unavailable Milton Freewater, Robert Suze PA Unavailable Unavailable Milton Freewater, J Suze PA Unavailable Unavailable Milton Freewater, Robert Suze PA Unavailable Unavailable Milton Freewater, Robert Roqueey PA Unavailable Unavailable Lorraine, Robert [...] is protected by Article 27-F of the [facility] Public Health law. If you continue you may have access to information: Regarding HIV / AIDS; Provided by facilities licensed or operated by the [facility] Office of Mental Health; or Provided by the [facility] Office for People With Developmental Disabilities. If such information is present, then the following [facility] mandated warning applies: This information has [...] law may result in a fine or snf sentence or both. A general authorization for the release of medical or other information is NOT sufficient authorization for further disc losure. Allergies and Adverse Reactions Type Description Substance Reaction Status Data Source(s ) Drug allergy Drug allergy NKDA [facility] ([facility]) Encounters Encounter Providers Location Date Indications Data Source(s ) Outpatient Attender: Vivienne VO [facility] n 05/16/2020 01:00:00 PM EDT [facility] ([facility]) Outpatient 03/21/2020 06:13:00 AM EDT [facility] Outpatient Attender: Vivienne VO [facility] n 02/27/2020 01:00:00 PM EDT [facility] ([facility]) Attender: Karlee PADRON [place] 02/13/2020 09:27:00 AM EDT - 02/13/2020 09:27:00 AM EDT [facility] ([facility]) OutpatientOFFICE VISIT, EST Attender: Karlee CORRIGAN Y [place] 02/09/2020 07:45:00 AM EDT - 02/09/2020 07:45:00 AM EDT Acute vaginitisHuman immunodeficiency virus [HIV] counselingHigh risk heterosexual behaviorEncntr screen for infections w sexl mode of transmissEncounter for oth general cnsl and advice on contraceptionOther sex counseling [facility] ([facility]) Acute vaginitis Human immunodeficiency virus [HIV] couns eling High risk heterosexual behavior Encntr screen for infections w sexl mode of transmiss Encounter for oth general cnsl and advic e on contraception Other sex counseling Attender: Suze PADRON [place] 10/2019 11:57:00 AM EST - 11/27/2019 11:57:00 AM EST [facility] ([facility]) Attender: Karlee PADRON [place] 11/07/2019 09:30:00 AM EST - 11/07/2019 09:30:00 AM EST Encntr for f/u exam aft trtmt for cond o th than malig neoplmEncounter for surveillance of contraceptive pillsEncounter for oth general cnsl and advice on contraceptionOther sex counseling [facility] ([facility]) Encntr for f/u exam aft trtmt for cond o th than malig neoplm Encounter for surveillance of contracept kishor pills Encounter for oth general cnsl and advic e on contraception Other sex counseling Attender: Karlee BRIAN PPMO [place] 10/27/2019 12:30:00 PM EST - 10/27/2019 12:30:00 PM EST Encounter for elective termination of [facility] ([facility]) Encounter for elective termination of pr egnancy Attender: Karlee BRIAN PPNCRICKY [place] 10/19/2019 11:00:00 AM EST - 10/19/2019 11:00:00 [...] state, incidental [facility] ([facility]) Encounter for initial prescription of co [...] HCL 05/16/2020 12:00:00 AM EDT active [facility] ([facility] ) rizatriptan 10 MG Disintegrating Oral Tablet [Maxalt] Maxalt -TRAVEL RN 02/27/2020 12:00:00 AM EDT ORAL completed [facility] ([facility] ) zonisamide 25 MG Oral Capsule Zonisamide 02/27/2020 12:00:00 AM EDT ORAL active [facility] ([facility] ) Metronidazole 500 MG Oral Tablet metronidazole 500 mg tablet metronidazole 500 mg tablet 02/09/2020 12:00:00 AM EDT active 1 tab po bid x 7d (#14) [facility] ([facility]) rizatriptan 5 MG Disintegrating Oral Tablet Rizatriptan Isauro oate 12/29/2019 12:00:00 AM EDT ORAL completed [facility] ([facility] ) Ibuprofen 800 MG Oral Tablet Ibuprofen 12/19/2019 12:00:00 AM EDT ORAL active [facility] ([facility] ) Sumatriptan 100 MG Oral Tablet Sumatriptan Succinate 12/19/2019 12:00:00 AM EDT ORAL completed [facility] ([facility] ) Apri 0.15 mg-0.03 mg tablet {21 (Desogestrel 0.15 MG / Ethinyl Estradiol 0.03 MG Oral Tablet) / 7 (Inert Ingredients 1 MG Oral Tablet) } Pack 10/19/2019 12:00:00 AM EST active Apri 28 Day Pack [facility] ([facility]) Insurance Providers Payer name Policy type / Coverage type Policy ID Covered libertarian ID Covered libertarian's relationship to king Policy King Plan Information [facility] ACTIVE DUTY [id number] SP [id number] / [id number] Self [id number] HUMANA [facility] REG O [id number] S [id number] [employer] ACTIVE DUTY [id number] SP [id number] SELF PAY O UNAVAILABLE S UNAVAILA BLE [facility] HUMANA - O/P [id number] 18 [id number] [facility] ACTIVE DUTY [id number] SP [id number] Problems, Conditions, and Diagnoses Code Display Name Description Problem Type Effective Dates Data Source(s) 164411711 Chronic tension-type headache Chronic tension-type hea dache Problem 12/19/2019 12:00:00 AM EDT [facility] ([facility] ) 939444259 Migraine without aura, not refractory Mi graine without aura, not refractory Problem 12/19/2019 12:00:00 AM EDT [facility] ([facility] ) Surgeries/Procedures Procedure Description Date Indications Data Source(s) CVR Ict Account Manager.Svc. Other 02/09/2020 12:00:00 AM EDT - 2019 12:00:00 AM EDT [facility] ([facility]) CVR Med.Svc. Vaginitis Rx 02/09/2020 12: 00:00 AM EDT - 02/09/2020 12:00:00 AM EDT [facility] ([facility]) CVR Med.Svc. Other 02/09/2020 12:00:00 AM EDT - 2019 12:00:00 AM EDT [facility] ([facility]) OFFICE VISIT, EST 02/09/2020 12:00:00 AM EDT - 020 12:00:00 AM EDT [facility] ([facility]) SMEAR, WET [place], SALINE/INK 02/09/2020 12:00:00 AM EDT - 02/09/2020 12:00:00 AM EDT [facility] ([facility]) ASSAY OF BODY FLUID ACIDITY 02/09/2020 1 2:00:00 AM EDT - 02/09/2020 12:00:00 AM EDT [facility] ([facility]) TRICHOMONAS VAGIN, DIR PROBE 02/09/2020 12:00:00 AM EDT - 02/09/2020 12:00:00 AM EDT [facility] ([facility]) CABRERA VAG, DNA, DIR PROBE 02/09/2020 1 2:00:00 AM EDT - 02/09/2020 12:00:00 AM EDT [facility] ([facility]) NANCY, DNA, DIR PROBE 02/09/2020 12:00 :00 AM EDT - 02/09/2020 12:00:00 AM EDT [facility] ([facility]) Male Condom Latex 02/09/2020 12:00:00 AM EDT - 020 12:00:00 AM EDT [facility] ([facility]) N.GONORRHOEAE, Pharyngeal 02/09/2020 12: 00:00 AM EDT - 02/09/2020 12:00:00 AM EDT [facility] ([facility]) CHYLMD TRACH, Pharyngeal 02/09/2020 12:0 0:00 AM EDT - 02/09/2020 12:00:00 AM EDT [facility] ([facility]) SYPHILLIS BLOOD SEROLOGY, QUALITATIVE 12:00:00 AM EDT - 02/09/2020 12:00:00 AM EDT [facility] ([facility]) HEPATITIS C AB TEST 02/09/2020 12:00:00 AM EDT - 02/08 12:00:00 AM EDT [facility] ([facility]) N.GONORRHOEAE, URINE 02/09/2020 12:00:00 AM EDT - 02/09/2020 12:00:00 AM EDT [facility] ([facility]) CHYLMD TRACH, URINE 02/09/2020 12:00:00 AM EDT - 02/08 12:00:00 AM EDT [facility] ([facility]) Results ID Date Data Source [id number] 09/11/2020 10:50:00 AM EST [facility] Name Value Range Interpretation Code Description Data Tg rce(s) Supporting Document(s) SARS coronavirus 2 RNA [facility] This lab was ordered by [facility] and reported by [facility]. ID Date Data Source [id number] 02/09/2020 09:31:21 AM EDT [facility] ([facility]) Name Value Range Interpretation Code Description Data Tg rce(s) Supporting Document(s) Hyphae/Nancy: noBudding y east: noTrich: noClue cells: yes (>=20%)WBCs: noAmine/Whiff test: positivepH: 5.0 Wet [place] [facility] ([facility]) ID Date Data Source [id number] 02/09/2020 09:30:57 AM EDT [facility] ([facility]) Name Value Range Interpretation Code Description Data Tg rce(s) Supporting Document(s) pH: 5.0. Vaginal pH [facility] ([facility] Procedure Social History Code Duration Value Status Description Data Source(s ) Smoking 02/13/2020 12:00:00 AM EDT Never smoker completed Never s moker [facility] ([facility]) Vital Signs ID Date Data Source UNK Name Value Range Interpretation Code Description Data Source(s) Respiratory rate 16 /min 16 /min [facility] ( [facility]) [facility] 76 /min 76 /[facility] Diastolic blood pressure 80 mm[Hg] 80 mm[Hg] [facility] ([facility]) Systolic blood pressure 110 mm[Hg] 110 mm[Hg] M [facility] ([facility]) Body mass index (BMI) [Ratio] 27.33 kg/m2 Overweight 27.33 kg/m2 [facility] ([facility]) Diastolic blood pressure 78 mm[Hg] 78 mm[Hg] [facility] ([facility]) Systolic blood pressure 120 mm[Hg] 120 mm[Hg] N [facility] ([facility]) Body weight 79.152 kg 79.152 kg [facility] ([facility]) Body height 170.18 cm 170.18 cm [facility] ([facility]) Body mass index (BMI) [Ratio] 25.5 kg/m2 25.5 k g/m2 [facility] ([facility], ) Body weight 163.00 [lb_av] 163.00 [lb_av] MEDEN T ([facility], ) Body height 67 [in_i] 67 [in_i] [facility] ([facility], ) 5'7" Respiratory rate 14 /min 14 /min [facility] Heart rate 80 /min 80 /min [facility] Diastolic blood pressure 80 mm[Hg] 80 mm[Hg] [facility] ([facility], ) Systolic blood pressure 110 mm[Hg] 110 mm[Hg] [facility] Patient Treatment Plan of Care Planned Activity Planned Date Details Description Data Source (s) Metronidazole 500 MG Oral Tablet 02/09/2020 12:00:00 AM [facility] Apri 0.15 mg-0.03 mg tablet 10/19/2019 12:00:00 AM EST [facility] ([facility])
[2020-11-10 13:08] LABS: HCG, SERUM QUALITATIVE NEGATIVE (NEGATIVE)
[2020-11-10 13:11] LABS: ALBUMIN 3.9 GM/DL (3.2-5.2); ALT/SGPT 23 U/L (12-78); BILIRUBIN,DIRECT 0.2 MG/DL (0.0-0.2); BILIRUBIN,TOTAL 0.8 MG/DL (0.2-1.0); BLOOD UREA NITROGEN 10 MG/DL (7-18); CARBON DIOXIDE LEVEL 27 MEQ/L (21-32); CHLORIDE LEVEL 108 MEQ/L (98-107); CREATININE FOR GFR 0.86 MG/DL (0.55-1.30); GLOMERULAR FILTRATION RATE > 60.0 (>60); GLUCOSE, FASTING 97 MG/DL (70-100); POTASSIUM SERUM 3.8 MEQ/L (3.5-5.1); SODIUM LEVEL 144 MEQ/L (136-145); TOTAL PROTEIN 7.6 GM/DL (6.4-8.2)
[2020-11-10 13:19] LABS: LIPASE 72 U/L (73-393)
[2020-11-10 14:41] VITALS: BP 127/67
== END 2020-11-10 14:48 | disposition home or self-care (01) ==
LOC: M ED 12:06
DX: R11.10 Vomiting, unspecified (principal); T51.0X1A Toxic effect of ethanol, accidental (unintentional), initial encounter; Y92.9 Unspecified place or not applicable; Y93.9 Activity, unspecified
CPT/HCPCS: 80048; 80076; 83690; 84703; 85025; 96361; 96374; 99284; J2405

== ENCOUNTER → 2021-01-29 | Outpatient (CLI) | payer OTHER ==
[~2021-01-29] MED LIST changes: +ZONI25CA13 PO
--- NOTE | 2021-01-29 10:51 | REP ---
INDICATION: FREE FLUID IN ABD, ECTOPIC PREG? 6.1WEEKS. COMPARISON: None. TECHNIQUE: Real-time sonographic evaluation of pelvis performed utilizing transabdominal and endovaginal technique. FINDINGS: The uterus measures 9.5 x 5.3 x 7.2 cm. Intrauterine sac measures 5 mm in diameter, which would correspond to an estimated gestational age of 5 weeks 2 days. Thin linear internal echogenicity is seen within the sac-like structure. No well-defined yolk sac or pole is seen. Right ovary measures 5.2 x 2.7 x 5.5 cm. There is a septated cystic structure in the right ovary probably representing a complex corpus luteum 3.7 x 1.9 x 2.8 cm. The left ovary measures 4.3 x 1.1 x 3.3 cm. There is blood flow seen in each ovary with duplex Doppler evaluation, with no torsion. Small amount of free fluid is seen in the posterior cul-de-sac. IMPRESSION: Sac-like structure in the endometrial canal 5 mm in diameter with thin linear internal echogenicity. No well-defined yolk sac or pole seen. This could represent and very early intrauterine gestation with an estimated gestational age of 5 weeks 2 days. Differential diagnosis would also include missed AB, or ectopic . Suggest correlation with serial quantitative beta HCG values, and follow-up ultrasound if necessary. Septated cystic structure right ovary maximum diameter 3.7 cm probably represents a complex corpus luteum. No torsion. Mild free fluid. <Electronically signed by Joseph Ochoa > 01/29/21 1047
== END ==
LOC: M RAD 09:56
PROVIDERS: ATTEND Obstetrics & Gynecology
DX: O99.891 Other specified diseases and conditions complicating pregnancy (principal); O34.81 Maternal care for other abnormalities of pelvic organs, first trimester; Z3A.01 Less than 8 weeks gestation of pregnancy

== ENCOUNTER → 2021-01-31 | Outpatient (CLI) | payer OTHER | LOC: M LAB 09:22 | PROVIDERS: ATTEND Obstetrics & Gynecology | DX: Z36.89 Encounter for other specified antenatal screening (principal) ==